=== PATIENT | male | born 1955 | race Caucasian/White ===

== ENCOUNTER → 2019-05-13 | Outpatient (CLI) | payer BC ==
[2019-05-05 15:00] VITALS: BP 93/63
[~2019-05-13] MED LIST: DICL75TA PO; GADOTERATE 7.5 MMOL/15ML VIAL. IVP ONE; MULT1TAB52 PO
--- NOTE | 2019-05-13 12:37 | RAD ---
BRAIN WO/W CONTRAST History: Recent seizure. Technique: Multiplanar, multi sequential pre and postcontrast MR imaging was performed of the brain. Contrast: 13 mL Dotarem. Comparison: Head CT May 04, 2019 Findings: No acute infarct. No intracranial hemorrhage. No mass effect. No hydrocephalus. Extra-axial spaces are unremarkable. No pathologic enhancement. Several foci of T2/FLAIR hyperintensity within the hemispheric white matter, likely within normal range for age. Previous identified right frontal white matter hypodensity is not identified and likely related to artifact. Left lateral scalp subcutaneous lesion measures 8 mm, unchanged. Imaged orbits are unremarkable. Imaged paranasal sinuses and mastoid air cells are clear. Impression: 1. No acute intracranial abnormality. 2. Left lateral scalp subcutaneous lesion, may represent epidermal inclusion cyst. Electronically signed by: Bernardo Bell DO (05/13/2019 12:34 PM) [id number]
--- NOTE | 2019-05-13 13:06 | EEG ---
DATE OF SERVICE: 05/13/2019 EEG NUMBER: [id number]. OBJECTIVE: This is a 63-year-old male patient with history of seizure or seizure-like episodes. EEG was requested to evaluate seizure activity. METHODS: Twenty electrodes were applied according to the international 10-20 electrode placement system. EKG monitoring, hyperventilation, intermittent photic stimulation, monopolar and bipolar montages are routinely utilized. The record was obtained on a digital system with video monitoring. FINDINGS: 1. Background: The patient was recorded in the awake, drowsy, and sleep states. The overall background amplitude is 10-30 microvolts. A posterior dominant rhythm of 8-10 Hz is observed. 2. Abnormalities: No specific epileptiform discharge or electrographic seizure is seen. No focal or diffuse slowing. 3. Activation: Hyperventilation was performed with good efforts and normal response. Intermittent photic stimulation was performed with photic driving. No specific epileptiform discharge or electrographic seizure induced by hyperventilation or intermittent photic stimulation. IMPRESSION: This EEG is a normal study for the awake, drowsy, and sleep states. No focal, lateralizing, specific epileptiform discharge, or electrographic seizure is seen; however, a normal EEG does not rule out seizure. JORGE A BERNAL MD DR: Perez JOB#: [id number] / [id number] LILLIANA
== END | disposition home or self-care (01) ==
LOC: MRI 09:04
PROVIDERS: ATTEND Psychiatry & Neurology Neurology
DX: R56.9 Unspecified convulsions (principal); R06.4 Hyperventilation
CPT/HCPCS: 70553; 95816; A9575

== ENCOUNTER 2019-06-25 19:22 | Inpatient (IN) | payer BC ==
[~2019-06-25] VITALS: Ht 170.2 cm; Wt 66.8 kg
[~2019-06-25 19:22] MED LIST changes: -GADOTERATE 7.5 MMOL/15ML VIAL. IVP ONE
--- NOTE | 2019-06-25 19:36 | PHYS DOC ---
Past Medical History Past Medical History: Hypotension Past Surgical History: Lumbar Laminectomy Alcohol Use: None Drug Use: None Adult General Chief Complaint Chief Complaint: SEIZURE HPI HPI 63-year-old male with known history of seizure disorder (starting approximately 6 weeks ago). Apparently 1850 tonight patient was at [facility]odox with seizure activity. Patient became aggressive after the seizure, was actually in 4. restraints subcutaneous received IM Versed 10 mg. Upon his arrival here he is somnolent secondary to medications. He did have evidence of incontinence. Unable to provide history from patient, will discuss further with patient family. Family states patient had first seizure 6 weeks ago, was admitted with neuro workup at that time. Patient has been seeing Dr. Millard. States they did EEG, MRI at that time which was unremarkable for acute findings. Review of Systems Review of Systems Unable to obtain ROS 2/ patient's mental status Allergies Allergies Allergies Coded Allergies Type Severity Reaction Last Updated Verified No Known Drug Allergies 05/04/19 No Physical Exam Physical Exam Constitutional: Well developed, well nourished, no acute distress, non-toxic appearance. [] HENT: Normocephalic, atraumatic, bilateral external ears normal, oropharynx moist, no oral exudates, nose normal. [] Eyes: PERRLA, EOMI, conjunctiva normal, no discharge. [] Cardiovascular:Heart rate regular rhythm, no murmur [] Lungs & Thorax: Bilateral breath sounds clear to auscultation [] Abdomen: Bowel sounds normal, soft, no tenderness, no masses, no pulsatile masses. [] Skin: Warm, dry, no erythema, no rash. [] Extremities: No edema. [] Neurologic: somnelent, patient moving all ext prior to arrival however received versed 10mg IM [] Psychologic: Somnelent, was aggressive after seizure Current Patient Data Vital Signs Vital Signs Date Time Temp Pulse Resp B/P (MAP) Pulse Ox O2 Delivery O2 Flow Rate FiO2 06/25/19 21:39 84 16 99 06/25/19 19:22 97.4 110/68 (82) Room Air 97.4 Lab Values Laboratory Tests Test 06/25/19 19:29 06/25/19 19:36 06/25/19 19:44 White Blood Count 7.0 x10^3/uL (4.0-11.0) Red Blood Count 5.30 x10^6/uL (4.30-5.70) Hemoglobin 16.4 g/dL (13.0-17.5) Hematocrit 49.0 % (39.0-53.0) Mean Corpuscular Volume 92 fL (79-100) Mean Corpuscular Hemoglobin 31 pg (25-35) Mean Corpuscular Hemoglobin Concent 34 g/dL (31-37) Red Cell Distribution Width 13.0 % (11.5-14.5) Platelet Count 241 x10^3/uL (140-400) Neutrophils (%) (Auto) 34 % (31-73) Lymphocytes (%) (Auto) 57 % (24-48) H Monocytes (%) (Auto) 7 % (0-9) Eosinophils (%) (Auto) 2 % (0-3) Basophils (%) (Auto) 1 % (0-3) Neutrophils # (Auto) 2.4 x10^3/uL (1.8-7.7) Lymphocytes # (Auto) 4.0 x10^3/uL (1.0-4.8) Monocytes # (Auto) 0.5 x10^3/uL (0.0-1.1) Eosinophils # (Auto) 0.1 x10^3/uL (0.0-0.7) Basophils # (Auto) 0.0 x10^3/uL (0.0-0.2) Sodium Level 143 mmol/L (136-145) Potassium Level 3.4 mmol/L (3.5-5.1) L Chloride Level 102 mmol/L (98-107) Carbon Dioxide Level 20 mmol/L (21-32) L Anion Gap 21 (6-14) H Blood Urea Nitrogen 18 mg/dL (8-26) Creatinine 1.3 mg/dL (0.7-1.3) Estimated GFR (Cockcroft-Gault) 55.8 BUN/Creatinine Ratio 14 (6-20) Glucose Level 126 mg/dL (70-99) H Lactic Acid Level 12.1 mmol/L (0.4-2.0) *H Calcium Level 8.7 mg/dL (8.5-10.1) Total Bilirubin 1.5 mg/dL (0.2-1.0) H Aspartate Amino Transferase (AST) 23 U/L (15-37) Alanine Aminotransferase (ALT) 23 U/L (16-63) Alkaline Phosphatase 51 U/L (46-116) Ammonia 48 mcmol/L (11-34) H Total Protein 7.3 g/dL (6.4-8.2) Albumin 4.1 g/dL (3.4-5.0) Albumin/Globulin Ratio 1.3 (1.0-1.7) Urine Collection Type Unknown Urine Color Yellow Urine Clarity Clear Urine pH 5.5 Urine Specific [place] 1.015 Urine Protein Negative mg/dL (NEG-TRACE) Urine Glucose (UA) Negative mg/dL (NEG) Urine Ketones (Stick) Negative mg/dL (NEG) Urine Blood Negative (NEG) Urine Nitrite Negative (NEG) Urine Bilirubin Negative (NEG) Urine Urobilinogen Dipstick 0.2 mg/dL (0.2 mg/dL) Urine Leukocyte Esterase Negative (NEG) Urine RBC 0 /HPF (0-2) Urine WBC 0 /HPF (0-4) Urine Amorphous Sediment Present /HPF Urine Bacteria 0 /HPF (0-FEW) Urine Hyaline Casts Few /HPF Urine Mucus Mod /LPF Urine Sperm Present /HPF Glucose (Fingerstick) 111 mg/dL (70-99) H Laboratory Tests 06/25/19 19:29 Laboratory Tests 06/25/19 19:29 EKG EKG EKG reviewed, heart rate 86, no evidence of acute ST or T wave change appreciated. Nonurgent EKG[] Interpretation Time: Interpretation time 1926 Radiology/Procedures Radiology/Procedures [] Course & Med Decision Making Course & Med Decision Making Pertinent Labs and Imaging studies reviewed. (See chart for details) [] 63-year-old male with known history of seizure disorder (starting approximately 6 weeks ago). Apparently 1850 tonight patient was at orthodox with seizure activity. Patient became aggressive after the seizure, was actually in 4. restraints subcutaneous received IM Versed 10 mg. Upon his arrival here he is somnolent secondary to medications. He did have evidence of incontinence. Unable to provide history from patient, will discuss further with patient family. Family states patient had first seizure 6 weeks ago, was admitted with neuro workup at that time. Patient has been seeing Dr. Millard. States they did EEG, MRI at that time which was unremarkable for acute findings. Labs reviewed, lactic acid 12.1 however this is secondary to patient's seizure. No evidence of sepsis. White blood cell count 7.0, sodium 143, potassium 3.4. Right ear negative. Patient has had previous workup with MRI, neurology consultation, they elected not to start antiseizure medications at that time security normal workup. Given continued seizure activity we'll plan for further admission and observation and discussion with neurology consultation. Patient was not provided with antiseizure medication in the ER - he received 10mg Versed IM prior to arrival Reassessment of patient, back to baseline, at bedside and agrees with plan for admit and further neuro consult. Dragon Disclaimer Dragon Disclaimer This electronic medical record was generated, in whole or in part, using a voice recognition dictation system. Departure Departure Impression: Primary Impression: Seizure Disposition: ADMITTED INPATIENT Admitting Physician: MIRI Condition: STABLE Referrals: MAXX MARROQUIN (PCP) CHINA RIVAS MD Jun 25, 2019 19:36
[2019-06-25] MEDS ORDERED: DOXY100C2 PO (19:53)
[2019-06-25 20:02] LABS: BASO % 1 % (0-3); EOS # 0.1 x10^3/uL (0.0-0.7); EOS % 2 % (0-3); HEMOGLOBIN 16.4 g/dL (13.0-17.5); LYMPH % 57 % (24-48); MEAN CORPUSCULAR HEMOGLOBIN 31 pg (25-35); MEAN CORPUSCULAR HGB CONC 34 g/dL (31-37); MEAN CORPUSCULAR VOLUME 92 fL (79-100); MONO # 0.5 x10^3/uL (0.0-1.1); MONO % 7 % (0-9); NEUT # 2.4 x10^3/uL (1.8-7.7); NEUT % 34 % (31-73); PLATELET COUNT 241 x10^3/uL (140-400)
[2019-06-25 20:02] LABS: BILIRUBIN,URINE NEGATIVE (NEG); CLARITY,URINE CLEAR; COLOR,URINE YELLOW; NITRITE,URINE NEGATIVE (NEG); PH,URINE 5.5; PROTEIN,URINE NEGATIVE (NEG-TRACE); UROBILINOGEN,URINE 0.2 mg/dL (0.2 mg/dL)
[2019-06-25 20:06] LABS: BACTERIA,URINE 0 /HPF (0-FEW); RBC,URINE 0 /HPF (0-2); WBC,URINE 0 /HPF (0-4)
[2019-06-25 20:07] LABS: AMORPHOUS SEDIMENT,UR PRESENT /HPF; HYALINE CASTS, URINE FEW /HPF; SPERM,URINE PRESENT /HPF
[2019-06-25 20:18] LABS: CALCIUM 8.7 mg/dL (8.5-10.1); CREATININE 1.3 mg/dL (0.7-1.3); GFR 55.8; POTASSIUM 3.4 mmol/L (3.5-5.1)
[2019-06-25 20:24] LABS: ALBUMIN 4.1 g/dL (3.4-5.0); ALBUMIN/GLOBULIN RATIO 1.3 (1.0-1.7); TOTAL BILIRUBIN 1.5 mg/dL (0.2-1.0); TOTAL PROTEIN 7.3 g/dL (6.4-8.2)
[2019-06-25] MEDS ORDERED: ONDANSETRON PF 4 MG/2 ML VIAL. IV PRN (21:45)
[2019-06-25] MEDS ORDERED: ACETAMINOPHEN 325 MG TABLET. PO PRN (21:45)
[2019-06-25 22:30] VITALS: BP 104/56
--- NOTE | 2019-06-25 22:40 | NUR ---
The patient, ERVIN SINGLETON, 63 y/o, M admitted by SALLY DALY MD, was given written information regarding hospital policies, unit procedures and contact persons. Patient was transported from the ED to room 410 via gurney. RN performed a head to toe assessment at that time, VSS, afebrile, and no pain at that time. Bed rails were padded, bed is in lowest locked position, and call light is within reach. Valuables were checked and left in the room with the patient.
[2019-06-26 03:00] VITALS: BP 101/51
[2019-06-26 05:00] LABS: BASO % 0 % (0-3); EOS % 0 % (0-3); HEMATOCRIT 46.5 % (39.0-53.0); HEMOGLOBIN 15.9 g/dL (13.0-17.5); LYMPH # 1.1 x10^3/uL (1.0-4.8); LYMPH % 12 % (24-48); MEAN CORPUSCULAR HEMOGLOBIN 31 pg (25-35); MEAN CORPUSCULAR HGB CONC 34 g/dL (31-37); MEAN CORPUSCULAR VOLUME 90 fL (79-100); MONO # 0.9 x10^3/uL (0.0-1.1); MONO % 10 % (0-9); NEUT # 7.1 x10^3/uL (1.8-7.7); NEUT % 78 % (31-73); PLATELET COUNT 193 x10^3/uL (140-400); RED BLOOD COUNT 5.16 x10^6/uL (4.30-5.70); RED CELL DISTRIBUTION WIDTH 12.8 % (11.5-14.5); WHITE BLOOD COUNT 9.1 x10^3/uL (4.0-11.0)
[2019-06-26 05:21] LABS: ALBUMIN 3.6 g/dL (3.4-5.0); ALBUMIN/GLOBULIN RATIO 1.3 (1.0-1.7); GFR 75.5; POTASSIUM 3.5 mmol/L (3.5-5.1); TOTAL BILIRUBIN 1.3 mg/dL (0.2-1.0); TOTAL PROTEIN 6.4 g/dL (6.4-8.2)
[2019-06-26 07:00] VITALS: BP 96/56
--- NOTE | 2019-06-26 07:28 | EKG ---
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
[2019-06-26] MEDS ORDERED: DOXYCYCLINE HYCLATE 100 MG TABLET PO SCH ×2 (09:00)
--- NOTE | 2019-06-26 10:35 | NUR ---
SS following for discharge planning. SS reviewed pt chart. Pt is from home with spouse and is currently requiring oxygen. SS will continue to follow for discharge planning.
[2019-06-26 11:00] VITALS: BP 92/52
--- NOTE | 2019-06-26 12:20 | HP ---
ADMIT DATE: 06/25/2019 CHIEF COMPLAINT: Seizure. 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 Basically, he had a seizure yesterday started about 6:50. It was witnessed. He also had a seizure I think 6 weeks ago, so now this is his second seizure. 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 He states he has been treated for Lyme disease as well. I discussed the case with ER physician. We are admitting the patient with consultation to Neurology and Infectious Disease. PAST MEDICAL HISTORY: Lyme disease, although that has not been confirmed with an Infectious Disease doctor yet, lumbar laminectomy and hypotension. ALLERGIES: None. FAMILY HISTORY: Hypertension. SOCIAL HISTORY: Does not drink, smoke or take drugs. 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 MEDICATIONS: Reviewed, please refer to the MRAD. REVIEW OF SYSTEMS: GENERAL: No history of weight change, weakness or fevers. SKIN: No bruising, hair changes or rashes. EYES: No blurred, double or loss of vision. NOSE AND THROAT: No history of nosebleeds, hoarseness or sore throat. HEART: No history of palpitations, chest pain or shortness of breath on exertion. LUNGS: Denies cough, hemoptysis, wheezing or shortness of breath. GASTROINTESTINAL: Denies changes in appetite, nausea, vomiting, diarrhea or constipation. GENITOURINARY: No history of frequency, urgency, hesitancy or nocturia. NEUROLOGIC: Denies history of numbness, tingling, tremor or weakness. PSYCHIATRIC: No history of panic, anxiety or depression. ENDOCRINE: No history of heat or cold intolerance, polyuria or polydipsia. EXTREMITIES: Denies muscle weakness, joint pain, pain on walking or stiffness. PHYSICAL EXAMINATION: VITALS: Within normal limits and are stable. GENERAL: No apparent distress. Alert and oriented. HEENT: Head is normocephalic, atraumatic, pupils were equally round and reactive to light and accommodation. NECK: Supple, no JVD, no thyromegaly was noted. LUNGS: Clear to auscultation in all lung soriano without rhonchi or wheezing. HEART: RRR, S1, S2 present. Peripheral pulses intact, no obvious murmurs were noted. ABDOMEN: Soft, nontender. Positive bowel sounds no organomegaly, normal bowel sounds. EXTREMITIES: Without any cyanosis, clubbing, or edema. Pedal pulses intact, Homans sign is negative. NEUROLOGIC: Normal speech, normal tone. A & O x3, moves all extremities, no obvious focal deficits. PSYCHIATRIC: Normal affect, normal mood. Stable. SKIN: No ulcerations or rashes, good skin turgor, no jaundice. VASCULAR: Good capillary refill, neurovascular bundle appears to be intact. LABORATORY DATA: Hematology is normal. Electrolytes are normal. Lactic acid 12.1, but then it went down to 1.6. Urinalysis negative. IMAGING: Pending. ASSESSMENT AND PLAN: Probable new onset seizure disorder. The patient has had 2 seizures within the past 6 weeks. Suspect he is on Keppra, but we will go ahead and consult Neurology. We will also consult Infectious Disease regarding the possibility of Lyme Disease. Continue home meds, PT, OT, frequent labs. Seizure precautions. TEAGAN GARCIA DO DR: CRYSTAL/holly JOB#: [id number] / [id number]
[2019-06-26] MEDS ORDERED: levETIRAcetam 500 MG TABLET PO SCH (12:45)
[2019-06-26] MEDS ORDERED: LEVE500T56 PO (12:47)
--- NOTE | 2019-06-26 13:47 | PDOC2 ---
NEUROLOGY CONSULT Date of Admission Date of Admission DATE: 06/26/19 TIME: 13:40 Reason for Consult Reason for Consult: Seizure Referring Physician Referring Physician: Dr. Lai Source Source: Chart review, Patient History of Present Illness History of Present Illness The patient is a 63-year-old right-handed male who comes in with a seizure. He was here in May for new seizure. Dr. Millard on him, and MRI as well as EEG, 05/13/19, or negative. It was decided not to start anticonvulsants. I sent the patient had a generalized convulsive seizure with postictal confusion. There is no history of stroke, prior seizure, or head injury. He cannot identify any inciting cause for seizures such as stress, sleep deprivation, drug or alcohol abuse. He feels fine now and would like to go home. Also note that he has hypotension and bradycardia chronically, cardiology saw him last admission and even did a one-month event monitoring, all negative. 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 Current Medications Current Medications Current Medications Ondansetron HCl (Zofran) 4 mg PRN Q8HRS PRN IV NAUSEA/VOMITING; Start 06/25/19 at 21:45; Stop 06/26/19 at 21:44 Acetaminophen (Tylenol) 650 mg PRN Q4HRS PRN PO FEVER; Start 06/25/19 at 21:45; Stop 06/26/19 at 21:44 Doxycycline Hyclate (Vibra-Tab) 100 mg BID PO ; Start 06/26/19 at 09:00; Status Cancel Doxycycline Hyclate (Vibra-Tab) 100 mg BID PO Last administered on 06/26/19at 08:13; Start 06/26/19 at 09:00 Levetiracetam (Keppra) 500 mg BID PO ; Start 06/26/19 at 12:45 Lactobacillus Rhamnosus (Culturelle) 1 cap BID PO ; Start 06/26/19 at 14:00 Active Scripts Active Reported Doxycycline Hyclate 100 Mg Capsule 1 Cap PO BID Diclofenac Sodium 75 Mg Tablet.dr 1 Tab PO BID Multivitamins (Multivitamin) 1 Each Tablet 1 Tab PO DAILY Allergies Allergies: Coded Allergies: No Known Drug Allergies (Unverified , 05/04/19) ROS Review of System Negative for fever, chills, weight loss, shortness of breath, chest pain, indigestion, hematochezia, melena, and dysuria. Full 14-point review of systems is negative. Physical Exam Physical Examination General: Well-developed, well-nourished white male in no acute distress HEENT: Normocephalic andatraumatic.Temporal arteriespulsatile and nontender. Neck: Supple without bruit, no meningismus Musculoskeletal: Stability:see neurologic. Gait exam:see neurologic. Tone:see neurologic.Strength:see neurologic. Neurological: Mental Status:intact, orientation, memory, attention span/concentration, language, fund of knowledge normal. Cranial Nerves:Pupils equal and reactive to light, extraocular movements areintact, visual soriano are full to confrontation. Facial sensation is normal. There is no facial asymmetry. Vestibulo-ocular reflex is intact. Palate elevates and tongue protrudes in midline. All other cranial related problems are negative except as mentioned before.Reflexes:2+ and symmetric with flexor plantar responses. Motor:5/5 strength with normal tone and bulk. Coordination:Finger-nose finger and [id number] testing are normal. Rapid alternating movements and fine finger movements are intact. Gait:Normal, including tandem. Sensory:Normal pinprick, vibration, light touch, proprioception. Vitals VITALS Vital Signs Date Time Temp Pulse Resp B/P (MAP) Pulse Ox O2 Delivery O2 Flow Rate FiO2 06/26/19 11:00 97.9 51 14 92/52 (65) 97 Room Air 97.9 06/26/19 08:00 1.5 Labs Labs Laboratory Tests Test 06/25/19 19:29 06/25/19 19:36 06/25/19 19:44 06/25/19 23:15 White Blood Count 7.0 x10^3/uL (4.0-11.0) Red Blood Count 5.30 x10^6/uL (4.30-5.70) Hemoglobin 16.4 g/dL (13.0-17.5) Hematocrit 49.0 % (39.0-53.0) Mean Corpuscular Volume 92 fL (79-100) Mean Corpuscular Hemoglobin 31 pg (25-35) Mean Corpuscular Hemoglobin Concent 34 g/dL (31-37) Red Cell Distribution Width 13.0 % (11.5-14.5) Platelet Count 241 x10^3/uL (140-400) Neutrophils (%) (Auto) 34 % (31-73) Lymphocytes (%) (Auto) 57 % (24-48) Monocytes (%) (Auto) 7 % (0-9) Eosinophils (%) (Auto) 2 % (0-3) Basophils (%) (Auto) 1 % (0-3) Neutrophils # (Auto) 2.4 x10^3/uL (1.8-7.7) Lymphocytes # (Auto) 4.0 x10^3/uL (1.0-4.8) Monocytes # (Auto) 0.5 x10^3/uL (0.0-1.1) Eosinophils # (Auto) 0.1 x10^3/uL (0.0-0.7) Basophils # (Auto) 0.0 x10^3/uL (0.0-0.2) Sodium Level 143 mmol/L (136-145) Potassium Level 3.4 mmol/L (3.5-5.1) Chloride Level 102 mmol/L (98-107) Carbon Dioxide Level 20 mmol/L (21-32) Anion Gap 21 (6-14) Blood Urea Nitrogen 18 mg/dL (8-26) Creatinine 1.3 mg/dL (0.7-1.3) Estimated GFR (Cockcroft-Gault) 55.8 BUN/Creatinine Ratio 14 (6-20) Glucose Level 126 mg/dL (70-99) Lactic Acid Level 12.1 mmol/L (0.4-2.0) 1.6 mmol/L (0.4-2.0) Calcium Level 8.7 mg/dL (8.5-10.1) Total Bilirubin 1.5 mg/dL (0.2-1.0) Aspartate Amino Transf (AST/SGOT) 23 U/L (15-37) Alanine Aminotransferase (ALT/SGPT) 23 U/L (16-63) Alkaline Phosphatase 51 U/L (46-116) Ammonia 48 mcmol/L (11-34) Total Protein 7.3 g/dL (6.4-8.2) Albumin 4.1 g/dL (3.4-5.0) Albumin/Globulin Ratio 1.3 (1.0-1.7) Urine Collection Type Unknown Urine Color Yellow Urine Clarity Clear Urine pH 5.5 Urine Specific [place] 1.015 Urine Protein Negative mg/dL (NEG-TRACE) Urine Glucose (UA) Negative mg/dL (NEG) Urine Ketones (Stick) Negative mg/dL (NEG) Urine Blood Negative (NEG) Urine Nitrite Negative (NEG) Urine Bilirubin Negative (NEG) Urine Urobilinogen Dipstick 0.2 mg/dL (0.2 mg/dL) Urine Leukocyte Esterase Negative (NEG) Urine RBC 0 /HPF (0-2) Urine WBC 0 /HPF (0-4) Urine Amorphous Sediment Present /HPF Urine Bacteria 0 /HPF (0-FEW) Urine Hyaline Casts Few /HPF Urine Mucus Mod /LPF Urine Sperm Present /HPF Glucose (Fingerstick) 111 mg/dL (70-99) Test 06/26/19 04:10 White Blood Count 9.1 x10^3/uL (4.0-11.0) Red Blood Count 5.16 x10^6/uL (4.30-5.70) Hemoglobin 15.9 g/dL (13.0-17.5) Hematocrit 46.5 % (39.0-53.0) Mean Corpuscular Volume 90 fL (79-100) Mean Corpuscular Hemoglobin 31 pg (25-35) Mean Corpuscular Hemoglobin Concent 34 g/dL (31-37) Red Cell Distribution Width 12.8 % (11.5-14.5) Platelet Count 193 x10^3/uL (140-400) Neutrophils (%) (Auto) 78 % (31-73) Lymphocytes (%) (Auto) 12 % (24-48) Monocytes (%) (Auto) 10 % (0-9) Eosinophils (%) (Auto) 0 % (0-3) Basophils (%) (Auto) 0 % (0-3) Neutrophils # (Auto) 7.1 x10^3/uL (1.8-7.7) Lymphocytes # (Auto) 1.1 x10^3/uL (1.0-4.8) Monocytes # (Auto) 0.9 x10^3/uL (0.0-1.1) Eosinophils # (Auto) 0.0 x10^3/uL (0.0-0.7) Basophils # (Auto) 0.0 x10^3/uL (0.0-0.2) Sodium Level 141 mmol/L (136-145) Potassium Level 3.5 mmol/L (3.5-5.1) Chloride Level 106 mmol/L (98-107) Carbon Dioxide Level 27 mmol/L (21-32) Anion Gap 8 (6-14) Blood Urea Nitrogen 19 mg/dL (8-26) Creatinine 1.0 mg/dL (0.7-1.3) Estimated GFR (Cockcroft-Gault) 75.5 BUN/Creatinine Ratio 19 (6-20) Glucose Level 105 mg/dL (70-99) Calcium Level 9.0 mg/dL (8.5-10.1) Total Bilirubin 1.3 mg/dL (0.2-1.0) Aspartate Amino Transf (AST/SGOT) 40 U/L (15-37) Alanine Aminotransferase (ALT/SGPT) 28 U/L (16-63) Alkaline Phosphatase 42 U/L (46-116) Total Protein 6.4 g/dL (6.4-8.2) Albumin 3.6 g/dL (3.4-5.0) Albumin/Globulin Ratio 1.3 (1.0-1.7) Laboratory Tests Test 06/25/19 19:29 06/25/19 19:36 06/25/19 19:44 06/25/19 23:15 White Blood Count 7.0 x10^3/uL (4.0-11.0) Red Blood Count 5.30 x10^6/uL (4.30-5.70) Hemoglobin 16.4 g/dL (13.0-17.5) Hematocrit 49.0 % (39.0-53.0) Mean Corpuscular Volume 92 fL (79-100) Mean Corpuscular Hemoglobin 31 pg (25-35) Mean Corpuscular Hemoglobin Concent 34 g/dL (31-37) Red Cell Distribution Width 13.0 % (11.5-14.5) Platelet Count 241 x10^3/uL (140-400) Neutrophils (%) (Auto) 34 % (31-73) Lymphocytes (%) (Auto) 57 % (24-48) Monocytes (%) (Auto) 7 % (0-9) Eosinophils (%) (Auto) 2 % (0-3) Basophils (%) (Auto) 1 % (0-3) Neutrophils # (Auto) 2.4 x10^3/uL (1.8-7.7) Lymphocytes # (Auto) 4.0 x10^3/uL (1.0-4.8) Monocytes # (Auto) 0.5 x10^3/uL (0.0-1.1) Eosinophils # (Auto) 0.1 x10^3/uL (0.0-0.7) Basophils # (Auto) 0.0 x10^3/uL (0.0-0.2) Sodium Level 143 mmol/L (136-145) Potassium Level 3.4 mmol/L (3.5-5.1) Chloride Level 102 mmol/L (98-107) Carbon Dioxide Level 20 mmol/L (21-32) Anion Gap 21 (6-14) Blood Urea Nitrogen 18 mg/dL (8-26) Creatinine 1.3 mg/dL (0.7-1.3) Estimated GFR (Cockcroft-Gault) 55.8 BUN/Creatinine Ratio 14 (6-20) Glucose Level 126 mg/dL (70-99) Lactic Acid Level 12.1 mmol/L (0.4-2.0) 1.6 mmol/L (0.4-2.0) Calcium Level 8.7 mg/dL (8.5-10.1) Total Bilirubin 1.5 mg/dL (0.2-1.0) Aspartate Amino Transf (AST/SGOT) 23 U/L (15-37) Alanine Aminotransferase (ALT/SGPT) 23 U/L (16-63) Alkaline Phosphatase 51 U/L (46-116) Ammonia 48 mcmol/L (11-34) Total Protein 7.3 g/dL (6.4-8.2) Albumin 4.1 g/dL (3.4-5.0) Albumin/Globulin Ratio 1.3 (1.0-1.7) Urine Collection Type Unknown Urine Color Yellow Urine Clarity Clear Urine pH 5.5 Urine Specific [place] 1.015 Urine Protein Negative mg/dL (NEG-TRACE) Urine Glucose (UA) Negative mg/dL (NEG) Urine Ketones (Stick) Negative mg/dL (NEG) Urine Blood Negative (NEG) Urine Nitrite Negative (NEG) Urine Bilirubin Negative (NEG) Urine Urobilinogen Dipstick 0.2 mg/dL (0.2 mg/dL) Urine Leukocyte Esterase Negative (NEG) Urine RBC 0 /HPF (0-2) Urine WBC 0 /HPF (0-4) Urine Amorphous Sediment Present /HPF Urine Bacteria 0 /HPF (0-FEW) Urine Hyaline Casts Few /HPF Urine Mucus Mod /LPF Urine Sperm Present /HPF Glucose (Fingerstick) 111 mg/dL (70-99) Test 06/26/19 04:10 White Blood Count 9.1 x10^3/uL (4.0-11.0) Red Blood Count 5.16 x10^6/uL (4.30-5.70) Hemoglobin 15.9 g/dL (13.0-17.5) Hematocrit 46.5 % (39.0-53.0) Mean Corpuscular Volume 90 fL (79-100) Mean Corpuscular Hemoglobin 31 pg (25-35) Mean Corpuscular Hemoglobin Concent 34 g/dL (31-37) Red Cell Distribution Width 12.8 % (11.5-14.5) Platelet Count 193 x10^3/uL (140-400) Neutrophils (%) (Auto) 78 % (31-73) Lymphocytes (%) (Auto) 12 % (24-48) Monocytes (%) (Auto) 10 % (0-9) Eosinophils (%) (Auto) 0 % (0-3) Basophils (%) (Auto) 0 % (0-3) Neutrophils # (Auto) 7.1 x10^3/uL (1.8-7.7) Lymphocytes # (Auto) 1.1 x10^3/uL (1.0-4.8) Monocytes # (Auto) 0.9 x10^3/uL (0.0-1.1) Eosinophils # (Auto) 0.0 x10^3/uL (0.0-0.7) Basophils # (Auto) 0.0 x10^3/uL (0.0-0.2) Sodium Level 141 mmol/L (136-145) Potassium Level 3.5 mmol/L (3.5-5.1) Chloride Level 106 mmol/L (98-107) Carbon Dioxide Level 27 mmol/L (21-32) Anion Gap 8 (6-14) Blood Urea Nitrogen 19 mg/dL (8-26) Creatinine 1.0 mg/dL (0.7-1.3) Estimated GFR (Cockcroft-Gault) 75.5 BUN/Creatinine Ratio 19 (6-20) Glucose Level 105 mg/dL (70-99) Calcium Level 9.0 mg/dL (8.5-10.1) Total Bilirubin 1.3 mg/dL (0.2-1.0) Aspartate Amino Transf (AST/SGOT) 40 U/L (15-37) Alanine Aminotransferase (ALT/SGPT) 28 U/L (16-63) Alkaline Phosphatase 42 U/L (46-116) Total Protein 6.4 g/dL (6.4-8.2) Albumin 3.6 g/dL (3.4-5.0) Albumin/Globulin Ratio 1.3 (1.0-1.7) Assessment/Plan Assessment/Plan Impression: Epilepsy, now has had second seizure, note that he had elevated lactic acid and ammonia levels. He has returned to normal mental status baseline. I find no evidence of central nervous system infection. I doubt that the hypotension and bradycardia are causing the seizures. Recommendations: I discussed risks, benefits, alternatives, side effects and we'll start levetiracetam 500 mg twice a day (prescription electronically sent to [facility] in [place]) I discussed seizure precautions with the patient I informed him that he cannot drive until he has gone 6 months without a seizure I see no need to repeat the MRI and EEG studies Okay for discharge Follow-up with me or Dr. Millard in 2 months. Thank you for letting me help with the patient's care. ABIGAIL HEATON MD Jun 26, 2019 13:47
[2019-06-26] MEDS ORDERED: LACTOBACILLUS RHAMNOSUS GG 1 CAPSULE. PO SCH (14:00)
--- NOTE | 2019-06-26 15:15 | NUR ---
Pt discharging home with self care. Discharge instructions and prescriptions discussed. Pt verbalized understanding. IV removed. Pt ambulated to main entrance and was secured in vehicle with .
== END 2019-06-26 15:30 | disposition home or self-care (01) | DRG 101 ==
LOC: ER 19:22 → 4 NORTH 21:43
PROVIDERS: ADMIT Internal Medicine; ATTEND Internal Medicine
DX: G40.909 Epilepsy, unspecified, not intractable, without status epilepticus (principal); Z82.49 Family history of ischemic heart disease and other diseases of the circulatory system; I95.9 Hypotension, unspecified
CPT/HCPCS: 36415; 80053; 81001; 82140; 82962; 83605; 85025; 93005; 99285-25; G0378